=== PATIENT | female | born 1990 | race Caucasian/White ===

== ENCOUNTER → 2018-11-24 | Outpatient (CLI) | payer BC, OTHER ==
[~2018-11-24] MED LIST: CATHETER FLUSH 10 ML SYR IV PRN; morphine INJ 10 MG/ML 1ML (SYR OR VIAL) IVP STA
--- NOTE | 2018-11-24 09:59 | Diagnostic Imaging Report ---
INDICATION: Right upper quadrant pain. TECHNIQUE: The patient was administered 4.8 mCi of technetium 99m Choletec intravenously and imaging over the abdomen was performed. After 60 minutes, the gallbladder was not visualized. Small bowel activity was visualized. Therefore, the patient was given 2 mg of morphine sulfate intravenously and additional imaging was performed. FINDINGS: There is homogeneous uptake of activity throughout the liver. Prompt excretion of activity into the common duct is seen with normal passage into the small bowel. The gallbladder is nonvisualized up to 60 minutes. Post-morphine administration, there is gallbladder visualization noted. The ejection fraction could not be performed due to administration of the morphine. IMPRESSION: No evidence of cystic duct or common bile duct obstruction. Dictated by: Dictated on workstation # [id number]
== END ==
LOC: CARD 07:56
PROVIDERS: ATTEND Family Medicine
DX: R10.11 Right upper quadrant pain (principal)
CPT/HCPCS: 78226

== ENCOUNTER 2020-03-13 14:42 | Outpatient (RCR) | payer OTHER ==
[2020-03-13] MEDS ORDERED: bcp PO (15:12)
[2020-03-15] MEDS ORDERED: HYDR-83 PO (08:48)
== END 2020-03-13 15:26 | disposition home or self-care (01) ==
LOC: PREOP 14:42
PROVIDERS: ATTEND Surgery
DX: Z01.818 Encounter for other preprocedural examination (principal)